=== PATIENT | male | born 1985 | race Caucasian/White ===

== ENCOUNTER 2023-10-14 06:30 | Inpatient (IN) | payer BC, OTHER ==
[~2023-10-14] VITALS: Ht 175.3 cm; Wt 119.0 kg
[2023-10-14 07:29] LABS: Basophils # (auto) 0 10 ^3/uL (0-0.2); Basophils % (auto) 0.5 % (0.0-2.0); Eosinophils # (auto) 0.1 10 ^3/uL (0-0.8); Eosinophils % (auto) 1.1 % (0.0-7.0); Hemoglobin 16.6 g/dL (13.5-17.5); Lymphocytes # (auto) 1.8 10 ^3/uL (0.4-5.4); Lymphocytes % (auto) 30.4 % (10.0-50.0); Mean Corpuscular Hemoglobin 31.1 pg (28.0-32.0); Mean Corpuscular Hgb Conc. 34.7 g/dL (32.0-36.0); Mean Corpuscular Volume 89.6 fL (80.0-100.0); Monocytes # (auto) 0.4 10 ^3/uL (0-1.3); Monocytes % (auto) 6.4 % (0.0-12.0); Neutrophils # (auto) 3.6 10 ^3/uL (1.6-8.6); Neutrophils % (auto) 61.6 % (37.0-80.0); Nucleated Red Blood Cells % 0.1 %; Red Blood Cells 5.35 10^6/uL (4.5-5.90); Red Cell Distribution Width 13.5 % (11.8-14.3); White Blood Cell 5.9 10^3/uL (4.4-10.8)
[2023-10-14 07:34] LABS: Chloride 108 mmol/L (98-107); Potassium 4.1 mmol/L (3.5-5.1); Sodium 142 mmol/L (136-145)
[2023-10-14 07:35] LABS: Anion Gap 6 (5-15); Calcium 10.1 mg/dL (8.7-10.4); Carbon Dioxide 28 mmol/L (20-30)
[2023-10-14 07:40] LABS: BUN/Creatinine Ratio 11.7 (10.0-20.0); Blood Urea Nitrogen 9 mg/dL (9-23); Glucose 123 mg/dL (74-106)
[2023-10-14 07:43] LABS: Urine Bacteria None Seen /hpf (None Seen)
[2023-10-14 07:54] LABS: Urine Blood Negative /uL (Negative); Urine Clarity Clear (Clear); Urine Color Light-Yellow (Yellow); Urine Protein, UAD Negative (Negative); Urine Specific Gravity 1.015 (1.001-1.035); Urine Urobilinogen Normal (Negative); Urine WBC 1 /hpf (0 - 3)
[2023-10-14] MEDS: SODIUM CHLORIDE 0.9% 1,000 ML IVB ONE (08:18)
[2023-10-14] MEDS: PANTOPRAZOLE 40 MG/10 ML VIAL INJ IV ONE (08:18)
[2023-10-14] MEDS: ONDANSETRON HCL 4 MG/2 ML VIAL IV ONE (08:18)
[2023-10-14 08:20] VITALS: PULSE 68; RESP 21; O2SAT 95
[2023-10-14] MEDS: MORPHINE SULFATE 4 MG/ML SYR/VIAL IV ONE (08:40)
[2023-10-14] MEDS ORDERED: LEVO500T91 PO (09:02)
[2023-10-14] MEDS ORDERED: METR-344 PO (09:02)
[2023-10-14] MEDS: PIPERACILLIN-TAZO 4.5GM 100 ML IV ONE (09:21)
[2023-10-14] MEDS: HYDROmorphone HCL 2 MG/ML VL/or syr IV ONE (09:49)
[2023-10-14] MEDS: PIPERACILLIN-TAZOB 3.375GM 100 ML IV SCH (11:00)
[2023-10-14] MEDS ORDERED: NITROGLYCERIN 0.4 MG SL TAB SL PRN (11:00)
[2023-10-14] MEDS ORDERED: MORPHINE SULFATE INJ 2 MG/ml SYRG IV PRN (11:00)
[2023-10-14] MEDS: SOD CHL 0.45% 1,000 ML IV ONE (11:30)
[2023-10-14 12:02] VITALS: BP 146/72; PULSE 59; RESP 20; TEMP 97.3; O2SAT 96
[2023-10-14 13:23] LABS: Albumin 4.9 g/dL (3.2-4.8); Bilirubin, Direct 0.3 mg/dL (<0.3); Bilirubin, Total 0.8 mg/dL (0.2-1.0)
[2023-10-14] MEDS ORDERED: KETOROLAC TROMETH 30 MG/ML 1ML VIAL IV ONE (14:00)
[2023-10-14] MEDS ORDERED: ONDANSETRON HCL 4 MG/2 ML VIAL IV ONE (14:00)
[2023-10-14 15:27] VITALS: BP 132/71; PULSE 66; RESP 18; TEMP 97.7; O2SAT 95
[2023-10-14 15:50] VITALS: BP 128/61; PULSE 63; RESP 18; TEMP 97.8; O2SAT 96
[2023-10-14 15:55] LABS: INR 1.04 (0.9-1.15)
[2023-10-14] MEDS: KETOROLAC TROMETH 30 MG/ML 1ML VIAL IV ONE (16:14)
[2023-10-14 21:35] VITALS: BP 131/79; PULSE 62; RESP 18; TEMP 98; O2SAT 97
[2023-10-14] MEDS: KETOROLAC TROMETH 30 MG/ML 1ML VIAL IV PRN (22:12)
[2023-10-15] VITALS (9 sets, daily range): BP systolic 121–131; BP diastolic 65–77; PULSE 53–92; RESP 16–19; TEMP 96.8–98.3; O2SAT 89–100
[2023-10-15 06:15] LABS: Basophils # (auto) 0 10 ^3/uL (0-0.2); Basophils % (auto) 0.6 % (0.0-2.0); Eosinophils # (auto) 0.2 10 ^3/uL (0-0.8); Eosinophils % (auto) 2.2 % (0.0-7.0); Hematocrit 47.2 % (41.0-53.0); Lymphocytes # (auto) 1.4 10 ^3/uL (0.4-5.4); Lymphocytes % (auto) 20.3 % (10.0-50.0); Mean Corpuscular Hemoglobin 30.5 pg (28.0-32.0); Mean Corpuscular Volume 89.8 fL (80.0-100.0); Monocytes # (auto) 0.5 10 ^3/uL (0-1.3); Monocytes % (auto) 7.2 % (0.0-12.0); Neutrophils # (auto) 4.9 10 ^3/uL (1.6-8.6); Neutrophils % (auto) 69.7 % (37.0-80.0); Nucleated Red Blood Cells % 0.1 %; Red Blood Cells 5.26 10^6/uL (4.5-5.90); Red Cell Distribution Width 13.4 % (11.8-14.3)
[2023-10-15 06:26] LABS: INR 1.04 (0.9-1.15); Partial Thromboplastin Time 30.7 SEC (24.5-34.5)
[2023-10-15 06:34] LABS: Alanine Aminotransferase 89 U/L (7-40); Albumin 4.2 g/dL (3.2-4.8); Alkaline Phosphatase 43 U/L (46-116); Anion Gap 5 (5-15); Aspartate Aminotransferase 43 U/L (13-40); BUN/Creatinine Ratio 9.5 (10.0-20.0); Blood Urea Nitrogen 9 mg/dL (9-23); Calcium 9.6 mg/dL (8.7-10.4); Carbon Dioxide 27 mmol/L (20-30); Chloride 106 mmol/L (98-107); Glucose 132 mg/dL (74-106); Potassium 4.3 mmol/L (3.5-5.1); Sodium 138 mmol/L (136-145)
[2023-10-15 06:35] LABS: Bilirubin, Total 1.8 mg/dL (0.2-1.0); Total Protein 6.6 g/dL (5.7-8.2)
[2023-10-15] MEDS ORDERED: ceFAZolin 2 GM/D5W50ml 50 ML IV ONE (10:58)
[2023-10-15] MEDS ORDERED: SUCCINYLCHOLINE CHLORIDE 20 MG/ML 10ML VIAL IV ONE (11:04)
[2023-10-15] MEDS ORDERED: MIDAZOLAM HCL 2MG/2ML 2ml VIAL (1mg/ml) ONE (11:05)
[2023-10-15] MEDS ORDERED: MEPERIDINE HCL (50 MG/ML) 1 ML VIAL ONE (11:05)
[2023-10-15] MEDS ORDERED: fentaNYL CITRATE 100 MCG/2 ML VL ONE (11:05)
[2023-10-15] MEDS ORDERED: PROPOFOL 10 MG/ML 20 ML IV ONE (11:06)
[2023-10-15] MEDS ORDERED: DexAMETHasone SOD PHOS 10MG/1ML VIAL INJ ONE (11:06)
[2023-10-15] MEDS ORDERED: LIDOCAINE 2% JELLY 11ml (GLYDO) ONE (11:10)
[2023-10-15] MEDS ORDERED: ePHEDrine SULFATE 50 MG/ML AMP IV PRN (11:45)
[2023-10-15] MEDS ORDERED: hydrALAZINE HCL 20 MG/ML VL IV PRN (11:45)
[2023-10-15] MEDS ORDERED: MORPHINE SULFATE 4 MG/ML SYR/VIAL IV PRN (11:45)
[2023-10-15] MEDS ORDERED: HYDROmorphone HCL 2 MG/ML VL/or syr IV PRN (11:45)
[2023-10-15] MEDS ORDERED: MIDAZOLAM HCL 2MG/2ML 2ml VIAL (1mg/ml) IV PRN (11:45)
[2023-10-15] MEDS ORDERED: KETOROLAC TROMETH 30 MG/ML 1ML VIAL IV ONE (11:45)
[2023-10-15] MEDS ORDERED: LABETALOL HCL 5 MG/ML 4ML SYRINGE IV PRN (11:45)
[2023-10-15] MEDS ORDERED: ONDANSETRON HCL 4 MG/2 ML VIAL IV ONE (11:45)
[2023-10-15] MEDS ORDERED: SUGAMMADEX 200mg/2ml Vial (100MG/ML) IV ONE (11:58)
[2023-10-15] MEDS ORDERED: DOXAPRAM HCL 20 MG/ML 20ML VIAL INJ IV ONE (11:59)
[2023-10-15] MEDS ORDERED: ROCURONIUM 10MG/ML 10ML VIAL IV ONE (12:16)
[2023-10-15] MEDS: LIDOCAINE 1% HCL (LOCAL ANESTH.) INJ 20ML MDV ONE (12:31)
[2023-10-16 01:00] VITALS: BP 121/72; PULSE 65; RESP 18; TEMP 98.2; O2SAT 95
[2023-10-16 05:00] VITALS: BP 113/69; PULSE 69; RESP 17; TEMP 97.9; O2SAT 93
[2023-10-16 06:53] LABS: Alanine Aminotransferase 132 U/L (7-40); Albumin 4.2 g/dL (3.2-4.8); Alkaline Phosphatase 44 U/L (46-116); Anion Gap 6 (5-15); Blood Urea Nitrogen 6 mg/dL (9-23); Calcium 9.4 mg/dL (8.5-10.1); Carbon Dioxide 24 mmol/L (20-30); Chloride 107 mmol/L (98-107); Glucose 113 mg/dL (74-106); Potassium 4.3 mmol/L (3.5-5.1); Sodium 137 mmol/L (136-145)
[2023-10-16 06:54] LABS: Aspartate Aminotransferase 87 U/L (13-40); Bilirubin, Total 1.1 mg/dL (0.2-1.0); Total Protein 6.4 g/dL (5.7-8.2)
[2023-10-16 07:00] LABS: Basophils # (auto) 0 10 ^3/uL (0-0.2); Basophils % (auto) 0.2 % (0.0-2.0); Eosinophils # (auto) 0 10 ^3/uL (0-0.8); Eosinophils % (auto) 0.1 % (0.0-7.0); Hematocrit 45.3 % (41.0-53.0); Hemoglobin 15.5 g/dL (13.5-17.5); Lymphocytes # (auto) 0.9 10 ^3/uL (0.4-5.4); Lymphocytes % (auto) 9.3 % (10.0-50.0); Mean Corpuscular Hemoglobin 30.9 pg (28.0-32.0); Mean Corpuscular Hgb Conc. 34.3 g/dL (32.0-36.0); Mean Corpuscular Volume 90.1 fL (80.0-100.0); Monocytes # (auto) 0.4 10 ^3/uL (0-1.3); Monocytes % (auto) 4.7 % (0.0-12.0); Neutrophils # (auto) 7.9 10 ^3/uL (1.6-8.6); Neutrophils % (auto) 85.7 % (37.0-80.0); Nucleated Red Blood Cells % 0.3 %; Red Blood Cells 5.03 10^6/uL (4.5-5.90); Red Cell Distribution Width 13.2 % (11.8-14.3); White Blood Cell 9.3 10^3/uL (4.4-10.8)
[2023-10-16 09:00] VITALS: BP 127/64; PULSE 59; RESP 18; TEMP 98; O2SAT 93
[2023-10-16 13:00] VITALS: BP 123/75; PULSE 65; RESP 18; TEMP 97.5; O2SAT 93
== END 2023-10-16 17:00 | disposition home health service (06) | DRG 417 ==
LOC: ER 06:30 → OVERFLOW 10:56 → EAST 12:05
PROVIDERS: ADMIT Internal Medicine; ATTEND Internal Medicine
PROC: 0W9G4ZZ Drainage of Peritoneal Cavity, Percutaneous Endoscopic Approach (ICD-10-PCS; 2023-10-15)
PROC: 0FT44ZZ Resection of Gallbladder, Percutaneous Endoscopic Approach (ICD-10-PCS; principal; 2023-10-15 11:01)
DX: K80.00 Calculus of gallbladder with acute cholecystitis without obstruction (principal); K65.1 Peritoneal abscess; K52.9 Noninfective gastroenteritis and colitis, unspecified; K76.0 Fatty (change of) liver, not elsewhere classified; Z83.3 Family history of diabetes mellitus; Z82.49 Family history of ischemic heart disease and other diseases of the circulatory system; Z79.899 Other long term (current) drug therapy
CPT/HCPCS: 36415; 71045; 74176; 76705; 80048; 80053; 80076; 81001; 83690; 85025; 85610; 85730; 86850; 86900; 86901; 87040; 93005; 96361; 96365; 96375; C9113; G0378; J0330; J1100; J1885; J2001; J2250; J2405; J2543; J2704